=== PATIENT | male | born 1950 | race Caucasian/White ===

== ENCOUNTER → 2017-03-30 | Day surgery (SDC) | payer MEDICARE, BC ==
[~2017-03-30] VITALS: Ht 182.9 cm; Wt 73.1 kg
[~2017-03-30] MED LIST: ACETAMINOPHEN 1000 MG/100 ML VIAL IV ONE; ACETAMINOPHEN 500 MG CPLT PO PRN; ALEV220T14 PO; ATROPINE SULFATE 1% OPHT SOLN 2 ML BTL ONE; BALANCED SALT SOLN OPHT IRRIG 15 ML BTL LEFT EYE ONE; CHLORHEXIDINE GLUCONATE 2 % 1 PACK (2 CLOTHS) TOPICAL PRN; CYCLOPENTOLATE HCL 1% OPHT SOLN 2 ML BTL ONE; DEXAMETHASONE SOD PHOS 4 MG/ML VIAL ONE; DO NOT ADM ANY ANTICOAGULANT DRUGS PRN; FAMOTIDINE 20 MG/2 ML VIAL ONE; INSULIN HUMAN REGULAR 1,000 UNITS/10 ML VIAL SQ PRN; LACTATED RINGER'S 1000 ML IV PRN; METOPROLOL TARTRATE 25 MG TAB PO PRN; MIDAZOLAM HCL 2 MG/2 ML VIAL ONE; ONDANSETRON HCL 4 MG/2 ML VIAL IM PRN; ONDANSETRON HCL 4 MG/2 ML VIAL IV PUSH ONE; ONDANSETRON HCL 4 MG/2 ML VIAL IV PUSH PRN; ONETAB9 PO; PHENYLEPHRINE HCL 2.5% OPTH SOLN 2 ML BTL ONE; POVIDONE IODINE 5% (ANTISEPSIS KIT) 4 APPLICATIONS EACH NARE PRN; PROPOFOL 200 MG/20 ML AMP IV ONE; SODIUM CHLORID 0.9% 500 ML IV PRN; STERILE WATER FOR INJ 20 ML VIAL ONE; TOBRAMYCIN/DEXAMETHASONE OPTH OINT 3.5 GM TUBE ONE; TRIAMCINOLONE ACETONIDE 40 MG/ML VIAL ONE; TROPICAMIDE 1% OPHT SOLN 15 ML BTL ONE; ceFAZolin INJ 1,000 MG VIAL ONE; fentaNYL CITRATE 250 MCG/5 ML AMP ONE; oxyCODONE/ACETAMINOPHEN 5 MG/325 MG TAB PO PRN
[2017-03-30 07:22] VITALS: BP 154/81; PULSE 86; RESP 18; TEMP 98.4; O2SAT 98
[2017-03-30 07:43] LABS: AUTOMATED NEUTROPHIL # 3.5 TH/MM3 (1.8-7.7); BASOPHIL # 0.1 TH/MM3 (0-0.2); BASOPHIL % 1.3 % (0.0-2.0); EOSINOPHIL # 0.3 TH/MM3 (0-0.4); HEMATOCRIT 41.7 % (39.0-51.0); HEMO FLAGS DIFF FINAL; LYMPH % 26.2 % (9.0-44.0); LYMPHOCYTE # 1.7 TH/MM3 (1.0-4.8); MEAN CELL VOLUME 99.7 FL (80.0-100.0); MEAN CORPUSCULAR HEMOGLOBIN 35.5 PG (27.0-34.0); MEAN CORPUSCULAR HGB CONC 35.6 % (32.0-36.0); MONO % 13.2 % (0.0-8.0); NEUT % 55.3 % (16.0-70.0); PLATELET COUNT 200 TH/MM3 (150-450); RED BLOOD COUNT 4.18 MIL/MM3 (4.50-5.90); RED CELL DISTRIBUTION WIDTH 13.1 % (11.6-17.2); WHITE BLOOD COUNT 6.4 TH/MM3 (4.0-11.0)
--- NOTE | 2017-03-30 07:47 | EKG ---
Date Performed: 03/30/2017 Time Performed: 07:04:42 PTAGE: 66 years EKG: Sinus rhythm INCOMPLETE RIGHT BUNDLE BRANCH BLOCK BORDERLINE ECG NO PREVIOUS TRACING DOCTOR: Kristopher Flores Interpretating Date/Time 03/30/2017 07:45:49
[2017-03-30] MEDS: ATROPINE SULFATE 1% OPHT SOLN 5 ML BTL LEFT EYE SCH ×4 (08:03→09:00)
[2017-03-30] MEDS: PHENYLEPHRINE HCL 2.5% OPTH SOLN 2 ML BTL LEFT EYE SCH ×4 (08:03→09:00)
[2017-03-30] MEDS: TROPICAMIDE 1% OPHT SOLN 15 ML BTL LEFT EYE SCH ×4 (08:03→09:00)
[2017-03-30] MEDS: CYCLOPENTOLATE HCL 1% OPHT SOLN 2 ML BTL LEFT EYE SCH ×4 (08:03→09:00)
[2017-03-30 12:44] VITALS: BP 120/70; PULSE 76; RESP 20; TEMP 97.6; O2SAT 97
--- NOTE | 2017-04-01 12:26 | MP ---
cc: BENITO FONTANA M.D. DATE OF SURGERY: 03/30/2017 PREOPERATIVE DIAGNOSIS: Rhegmatogenous retinal detachment left eye. POSTOPERATIVE DIAGNOSIS: Rhegmatogenous retinal detachment left eye. PROCEDURE: Trans pars plana vitrectomy with internal drainage of subretinal fluid using Perfluoron liquid, endolaser photocoagulation and gas fluid exchange, left eye. SURGEON: Dr. Benito Fontana ANESTHESIA: General laryngeal mask anesthesia. INDICATIONS FOR PROCEDURE: Mr. Marvin is a 66 year-old gentleman who presented yesterday with loss of inferior visual field. This began by floaters he experienced a few weeks ago and then two or three days ago he noticed that the vision in the bottom of his visual field was blurry. He was found to have a rhegmatogenous retinal detachment with minimal involvement of the macula and vision of 20/200. The detachment went from approximately 10 o'clock to 3 o'clock and the fovea was shallowly on OCT scanning. Dr. Carias saw him initially and discussed the risks and benefits of surgery and recommended vitrectomy, gas tamponade. The patient wished to proceed and informed consent was obtained. DESCRIPTION OF PROCEDURE: He was brought to [facility] operating room #1 and placed on the operating room table. Appropriate anesthesia monitoring devices were applied and he was placed under general anesthesia using the laryngeal mask. The left eye was identified as the operative site and then prepped and draped in the usual sterile fashion. A lid speculum was placed. At this point an appropriate time-out was called with the surgical team agreeing to the surgical site and planned procedure. The microscope was brought around and adjusted. Using the Davon 22-gauge vitrectomy system the trocar cannulas were placed 3-1/2 mm posterior to the limbus after first displacing the conjunctiva and with a beveled entrance to the sclera. The first one was placed at approximately 3 o'clock and verified to be in the posterior chamber. An infusion cannula was affixed to it and turned on. Two additional trocar cannulas were placed in similar fashion at 10 and 2 o'clock. Using the flat contact lens a core vitrectomy was carried out with the Endo gas stove servicer helper light pipe and vitrectomy cutter. A posterior vitreous separation was noted. The flat lens was then exchanged out over the biome wide angle viewing system and a peripheral vitrectomy was performed. The retinal break was at 12 o'clock and the flap of the break was amputated as the peripheral vitreous was removed. Next Perfluoron liquid was used to flatten the retina after which endolaser photocoagulation was performed in the periphery nearly 360 degrees. A total of 1551 endo and DUKE spots were placed with a power that varied between 250 and 400 milliwatts and 0.1 to 0.15 second exposure. The Perfluoron was removed and replaced with sterile air and then the air was replaced with a 15% mixture of C3F8 gas which was slowly insufflated through the eye. The trocar cannulas were removed one by one with tamponade of the site with a cotton swab leaving the eye and diathermy of the overlying conjunctival wounds. This left the eye with good pressure and no visible air leak. Atropine drops were placed on the cornea followed by subconj injections of Ancef 125 mg in half cc and Decadron 2 mg in half cc. The lid speculum was removed and the patient was undraped. TobraDex ointment was placed on the cornea and then the left eye was patched and shielded. The patient had the laryngeal mask removed in the room and was returned to recovery in good condition laying on his right side. When he is awake and alert he will be asked to assume face down positioning. MD TK Espinoza/LORENZO /1:40 PM /12:11 PM
== END | disposition home or self-care (01) ==
LOC: HSDC 06:30
PROVIDERS: ATTEND Ophthalmology
DX: H33.012 Retinal detachment with single break, left eye (principal); H40.9 Unspecified glaucoma; R94.31 Abnormal electrocardiogram [ECG] [EKG]; F17.210 Nicotine dependence, cigarettes, uncomplicated; Z01.810 Encounter for preprocedural cardiovascular examination; Z01.818 Encounter for other preprocedural examination
CPT/HCPCS: 00145; 67108; 85025; 93005; J0131; J0690; J1100; J2250; J2405; J3010; J3301; J7120

== ENCOUNTER → 2017-04-19 | Day surgery (SDC) | payer MEDICARE, BC ==
[~2017-04-19] VITALS: Ht 182.9 cm; Wt 72.5 kg
[~2017-04-19] MED LIST changes: -ACETAMINOPHEN 1000 MG/100 ML VIAL IV ONE; -ACETAMINOPHEN 500 MG CPLT PO PRN; +BACIOIN25 LEFT EYE; -BALANCED SALT SOLN OPHT IRRIG 15 ML BTL LEFT EYE ONE; +BALANCED SALT SOLN OPHT IRRIG 15 ML BTL ONE; +BRIM0.2S4 LEFT EYE; +BUPIVACAINE HCL PF 0.75% 10 ML VIAL LEFT EYE ONE; +CYCL1SOL LEFT EYE; -CYCLOPENTOLATE HCL 1% OPHT SOLN 2 ML BTL ONE; +DORZ2SOL15 LEFT EYE; +EPINEPHrine HCL (1:1000) 1 MG/ML VIAL ONE; -FAMOTIDINE 20 MG/2 ML VIAL ONE; +GENTAMICIN SULFATE 80 MG/2 ML VIAL ONE; +LORazepam 2 MG/ML VIAL IV ONE; +LORazepam 2 MG/ML VIAL ONE; -ONDANSETRON HCL 4 MG/2 ML VIAL IM PRN; -ONDANSETRON HCL 4 MG/2 ML VIAL IV PUSH PRN; -PHENYLEPHRINE HCL 2.5% OPTH SOLN 2 ML BTL ONE; -STERILE WATER FOR INJ 20 ML VIAL ONE; +TOBRAMYCIN 0.3%/DEXAMETHASONE 0.1% OPHT SUSP 5 ML BTL ONE; +TOBRAMYCIN SULF 0.3% OPHT SOLN 5 ML BTL ONE; -TROPICAMIDE 1% OPHT SOLN 15 ML BTL ONE; +ePHEDrine/NS 25 MG/5 ML SYR IV ONE; -oxyCODONE/ACETAMINOPHEN 5 MG/325 MG TAB PO PRN
[2017-04-19 07:52] VITALS: BP 134/82; PULSE 76; RESP 20; TEMP 98.6; O2SAT 99
[2017-04-19] MEDS: PHENYLEPHRINE HCL 2.5% OPTH SOLN 2 ML BTL LEFT EYE SCH ×4 (09:50→10:35)
[2017-04-19] MEDS: TROPICAMIDE 1% OPHT SOLN 15 ML BTL LEFT EYE SCH ×4 (09:50→10:35)
[2017-04-19] MEDS: CYCLOPENTOLATE HCL 1% OPHT SOLN 2 ML BTL LEFT EYE SCH ×4 (09:50→10:35)
[2017-04-19] MEDS: ATROPINE SULFATE 1% OPHT SOLN 5 ML BTL LEFT EYE SCH ×4 (09:50→10:35)
[2017-04-19 17:55] VITALS: BP 153/82; PULSE 80; RESP 18; TEMP 99.2; O2SAT 97
--- NOTE | 2017-05-01 22:10 | MP ---
cc: BENITO MORALES M.D. DATE OF : 46 DATE OF SURGERY: 04/19/2017 PREOPERATIVE DIAGNOSIS: Recurrent rhegmatogenous retinal detachment, left eye. POSTOPERATIVE DIAGNOSIS: Recurrent rhegmatogenous retinal detachment, left eye. OPERATION: Scleral buckle procedure with trans pars plana vitrectomy, internal drainage of subretinal fluid, laser endophotocoagulation, gas-fluid exchange, left eye. SURGEON Dr. Benito Morales ANESTHESIA General laryngeal mask anesthesia. INDICATIONS FOR PROCEDURE: Mr. Marvin is a 66-year-old gentleman who underwent a vitrectomy for a primary rhegmatogenous retinal detachment on 03/30/2017. He was doing well until approximately 04/13/2017 when he was seen for postop and had developed a new retinal break in an area away from the original detachment inferiorly from about 5:30 to 8 o'clock. The retinal break was coalescing from several small breaks into a larger break and the inferior fluid was problematic. It was recommended that he undergo repeat procedure, this time with a scleral buckle to support the inferior peripheral retina. He wished to proceed. Informed consent was obtained. No guarantee was made as to visual outcome. DESCRIPTION OF PROCEDURE: He is brought to [facility] operating room #1 and placed on the operating room table. Appropriate anesthesia monitoring devices were applied and he was placed under general anesthesia using a laryngeal mask. The left eye was identified as the operative site and then prepped and draped in the usual sterile fashion. A lid speculum was placed. The conjunctiva was opened 360 degrees at the limbus using conjunctival forceps and Rossi scissors. Relaxing incisions were made nasally and temporally, all four quadrants were opened with blunt dissection using the blunt Rossi scissors. The four recti muscles were then hooked on muscle hooks and isolated on 4-0 black silk ties. The quadrants were inspected and had good scleral thickness. 5-0 polyester mattress sutures were placed 11 mm posterior to the limbus after the break was first marked at about 7 o'clock. This was in preparation of holding the buckle. The buckle was then threaded through the mattress sutures in each quadrant underneath the recti muscles and secured in the temporal quadrant above the lateral rectus muscle. Next the eye was entered with the Davon 23-gauge vitrectomy system, and residual peripheral vitreous was removed. The attachment to the retinal break at 7 was tediously dissected so there was no traction left there. The retina was flattened under Perfluoron. The Perfluoron allowed laser photocoagulation to the inferior retina on the posterior buckle with a total of 692 laser spots being placed with a power of 250 milliwatts and 0.1 second exposure. The buckle was then snugged down and secured and trimmed. The Perfluoron was exchanged out for air which was exchanged out for 15% mixture of C3F8 gas. The sclerostomies were sutured with interrupted 7-0 Vicryl. The conjunctiva was brought back up into place. The orbit was irrigated with a mixture of 0.75% Marcaine without epinephrine and tobramycin. The conj was brought back up into place and then closed along the radial relaxing incisions with 7-0 chromic. The recti muscle ties were removed. Atropine drops were placed on the cornea. The retina was attached under gas. Subconj injections of Ancef 125 mg in 0.5 cc and Decadron 2 mg in 0.5 cc were given at separate sites. The lid speculum was removed and the patient was undraped. TobraDex ointment was placed on the cornea and then the left eye was patched and shielded. The patient had the laryngeal mask removed in the room and was returned to recovery in good condition laying on his right side. When awake and alert, he will be asked to begin face down positioning. MD TK Espinoza/LORENZO /9:40 AM /9:56 PM
== END | disposition home or self-care (01) ==
LOC: HSDC 07:10
PROVIDERS: ATTEND Ophthalmology
DX: H33.012 Retinal detachment with single break, left eye (principal)
CPT/HCPCS: 00145; 67108; J0171; J0690; J1100; J2060; J2250; J2405; J3010; J3301; J7120; J1580

== ENCOUNTER 2018-06-06 05:36 | Inpatient (IN) ==
[2018-06-06] MEDS ORDERED: Metoprolol Tartrate 25 MG Tablet PO ONE (06:30)
[2018-06-06] MEDS ORDERED: Sodium Chlor 0.9% Inj 500 ML IV.CONT ONE (06:30)
[2018-06-06] MEDS ORDERED: Chlorhexidine Gluconate 2% 1 Pack (2 Cloths) TOPICAL ONE (06:30)
[2018-06-06] MEDS ORDERED: Bupivacaine 0.5% Inj 50 ML MDV Vial ONE (06:33)
[2018-06-06] MEDS ORDERED: ceFAZolin 2 GM Premix Inj 0 GM/0 ML PIGGYBACK IV.SIG ONE (06:33)
[2018-06-06 06:45] VITALS: BP 114/68; PULSE 84; RESP 20; TEMP 99.1; O2SAT 97
== END 2018-06-06 07:39 | disposition home or self-care (01) ==
LOC: HSDI 05:36
PROVIDERS: ADMIT Thoracic Surgery (Cardiothoracic Vascular Surgery); ATTEND Thoracic Surgery (Cardiothoracic Vascular Surgery)

== ENCOUNTER 2018-08-15 05:37 | Inpatient (IN) ==
[2018-08-15] MEDS ORDERED: Chlorhexidine Gluconate 2% 1 Pack (2 Cloths) TOPICAL ONE (06:00)
[2018-08-15] MEDS ORDERED: Metoprolol Tartrate 25 MG Tablet PO ONE (06:00)
[2018-08-15] MEDS ORDERED: Sodium Chlor 0.9% Inj 500 ML IV.CONT ONE (06:00)
[2018-08-15 07:04] LABS: Hematocrit 29.9 % (39.0-51.0); Mean Corpuscular HGB Conc 33.5 % (32.0-36.0); Mean Corpuscular Hemoglobin 31.8 pg (27.0-34.0); Mean Corpuscular Volume 94.8 fL (80.0-100.0); Red Blood Count 3.15 mil/mm3 (4.50-5.90); Red Cell Distribution Width 13.9 % (11.6-17.2)
[2018-08-15 07:05] LABS: Baso # (Auto) 0.1 th/mm3 (0.0-0.2); Eos # (Auto) 0.1 th/mm3 (0.0-0.4); Eos % (Auto) 1.3 % (0.0-4.0); Lymph # (Auto) 1.2 th/mm3 (1.0-4.8); Mean Platelet Volume 7.7 fL (7.0-11.0); Mono # (Auto) 1.3 th/mm3 (0.0-0.9); Mono % (Auto) 13.5 % (0.0-8.0); Neut # (Auto) 7.2 th/mm3 (1.8-7.7); Neut % (Auto) 72.2 % (16.0-70.0); Platelet Count 351 th/mm3 (150-450)
[2018-08-15] MEDS ORDERED: Bupivacaine 0.5% Inj 50 ML MDV Vial ONE (07:26)
[2018-08-15] MEDS ORDERED: ceFAZolin 1 GM Premix Inj 2 GM/100 ML PIGGYBACK IV.SIG ONE (07:26)
[2018-08-15] MEDS ORDERED: Sodium Chlor 0.9% Inj 20 ML, Bupivacaine Liposo PF 1.3% Inj 20 ML, Dexamethasone PF Inj... IRRIGATION ONE ×4 (08:30)
[2018-08-15] MEDS ORDERED: HYDROmorphone PF Inj 1 MG/ML Ampul ONE (11:48)
[2018-08-15] MEDS ORDERED: Bisacodyl 10 MG Supp RECTAL PRN (12:19)
[2018-08-15] MEDS ORDERED: Post-op Orders (for Pharmacy) OTHER STA (12:19)
[2018-08-15] MEDS ORDERED: Potassium Chlor 20 mEq Premix 20 MEQ/100 ML PIGGYBACK IV.SIG PRN (12:19)
--- NOTE | 2018-08-15 12:34 | P.OP ---
- Preoperative Diagnosis (1) Lung cancer Postoperative Diagnosis: same Date of procedure: 08/15/18 Procedure: VATS right lower lobectomy Internal rigid fixation of the 7th rib with a plate Anesthesia: JM Surgeon: Zaida Amaya MD Corrugator Operator Helper: Kimberly Lewis Estimated blood loss (mL): 100 Pathology: other (right lower lobe, paraesophageal lymph node) Operation and Findings: After adequate general anesthesia the patient was placed in the left lateral decubitus position and the right chest was prepped and draped in usual manner. A small anterior port incision was performed in the 7th intercostal space and electrocautery was used to obtain hemostasis. A 10mm port was inserted into the pleural space with single lung ventilation. A 6cm utility incision was placed at the 6th intercostal space at the posterior axillary line. Exploration of the right hemithorax was significant for a *tumor in the right lower lobe consistent with the patient's imaging studies and biopsy site. The inferior pulmonary ligament was divided and the inferior pulmonary vein isolated. The fissure was developed using an endo KEN stapler and blunt dissection. The pulmonary artery segmental arterial branches were ligated and divided using an endo KEN stapler. The right lower lobe bronchus was isolated and divided using an endo KEN stapler. The specimen was placed n a laparoscopic bag and delivered through the utility port. The specimen was submitted to pathology for permanent section. Additionally, a level 8 lymph nodes were resected and submitted for permanent section. A 32 Occitan chest tube was placed through the anterior port incision and secured with 0 silk suture. Esparel intercostal blocks were infused for postoperative analgesia. The lung was ventilated and no significant air leaks were found. A single small plate was used to reduce and fix a fractured rib. The utility port was closed in layers approximately each layer with a running 2-0 vicryl suture. The subcutaneous tissues approximated running 2-0 Vicryl suture and the skin was approximated using running 4-0 Monocryl subcuticular stitch. All sponges history counts were correct at the close the procedure and the patient was transferred to the PACU for recovery purposes.
[2018-08-15] MEDS ORDERED: fentaNYL Citrate Inj 100 MCG/2 ML Ampul ONE ×2 (12:57)
--- NOTE | 2018-08-15 13:45 | XR ---
EXAM DATE: 08/15/2018 1:32 PM EST AGE/SEX: 67 years / Male INDICATIONS: Post op thoracotomy. CLINICAL DATA: This is the patient's initial encounter. Patient reports that signs and symptoms have been present for 1 day and indicates a pain score of Nonresponsive. MEDICAL/SURGICAL HISTORY: . Carcinoma, lung. . Thoracotomy. [place] [facility] [facility] [place]. . FINDINGS: Right-sided postthoracotomy changes are noted. Loss of volume in the right lung base is characteristi c of lobectomy. The large masslike density in the right lower lobe has been removed. Right-sided ches t tube is in place. Residual right lung is well expanded without pneumothorax. Left lung remains clear. Heart and mediastinal structures remain within normal limits. CONCLUSION: Status post right thoracotomy with volume loss characteristic of lobectomy. Right-sided chest tube without evidence of pneumothorax. Otherwise stable chest Electronically signed by: Jered Martinez MD Board Certified Radiologist 08/15/2018 1:43 PM EST
[2018-08-15] MEDS ORDERED: Ketorolac Inj 30 MG/ML (IVP) Vial ONE (13:48)
[2018-08-15] MEDS: Ketorolac Inj 30 MG/ML (IVP) Vial IV.PUSH SCH ×2 (13:48→22:29)
[2018-08-15] MEDS ORDERED: ceFAZolin 1 GM Premix Inj 1 GM/50 ML PIGGYBACK IV.SIG ONE (15:06)
[2018-08-15] MEDS: Senna/Docusate Sodium 8.6/50 MG Tablet PO SCH (22:24)
[2018-08-16] MEDS: ceFAZolin 1 GM Premix Inj 1 GM/50 ML PIGGYBACK IV.SIG SCH ×2 (00:55→08:47)
[2018-08-16] MEDS: Ketorolac Inj 30 MG/ML (IVP) Vial IV.PUSH SCH ×2 (02:50→08:47)
--- NOTE | 2018-08-16 03:55 | XR ---
EXAM DATE: 08/16/2018 3:35 AM EST AGE/SEX: 67 years / Male INDICATIONS: COPD. Post Thoracotomy. CLINICAL DATA: This is the patient's subsequent encounter. Patient reports that signs and symptoms h ave been present for 2 days and indicates a pain score of 0/10. MEDICAL/SURGICAL HISTORY: . Carcinoma, lung. . Carcinoma, lung. COMPARISON: [facility] – [place], CHEST 1V SINGLE AP, 08/15/2018. . FINDINGS: There is a right-sided chest tube in place. A pneumothorax is not seen. The heart size is normal. The re is increased density at the right base. There is silhouetting the right hemidiaphragm. There some minimal increased density at the left base. There appears to be a surgical plate at the 8th right rib . There is minimal subcutaneous emphysema seen at the right upper lateral chest and neck region. CONCLUSION: Right chest tube without evidence for pneumothorax. Increased density at the medial right base with silhouetting the right hemidiaphragm. Minimal increased density at the left base. Electronically signed by: Marcelo Jacobson MD Board Certified Radiologist 08/16/2018 3:54 AM EST
[2018-08-16 05:00] LABS: Baso % (Auto) 0.4 % (0.0-2.0); Hematocrit 30.2 % (39.0-51.0); Hemoglobin 10.3 gm/dL (13.0-17.0); Lymph # (Auto) 0.9 th/mm3 (1.0-4.8); Lymph % (Auto) 8.4 % (9.0-44.0); Mean Corpuscular HGB Conc 33.9 % (32.0-36.0); Mean Corpuscular Volume 94.3 fL (80.0-100.0); Mean Platelet Volume 7.9 fL (7.0-11.0); Mono # (Auto) 0.7 th/mm3 (0.0-0.9); Mono % (Auto) 7.1 % (0.0-8.0); Neut # (Auto) 8.8 th/mm3 (1.8-7.7); Neut % (Auto) 84.1 % (16.0-70.0); Platelet Count 322 th/mm3 (150-450); Red Blood Count 3.21 mil/mm3 (4.50-5.90); Red Cell Distribution Width 13.6 % (11.6-17.2); White Blood Count 10.5 th/mm3 (4.0-11.0)
[2018-08-16 05:20] LABS: Anion Gap 6 meq/L (5-15); Blood Urea Nitrogen 16 mg/dL (7-18); Calcium 7.6 mg/dL (8.5-10.1); Chloride 102 meq/L (98-107); Glomerular Filtration Rate Greater Than 89 mL/min (>89); Glucose,Random 137 mg/dL (74-106); Potassium 4.1 meq/L (3.5-5.1); Sodium 135 meq/L (136-145)
[2018-08-16] MEDS: Ascorbic Acid 500 MG Tablet PO SCH (08:48)
[2018-08-16] MEDS: Senna/Docusate Sodium 8.6/50 MG Tablet PO SCH ×2 (08:48→20:22)
[2018-08-16] MEDS: Enoxaparin Inj 40 MG/0.4 ML Syringe SQ SCH (12:47)
--- NOTE | 2018-08-16 12:54 | P.PNCV ---
- Note CVT: Post Op Day #: 1 Subjective/Hospital Course: Doing well, no complaints Objective: Vital Signs - 24 hr 08/15/18 13:00 08/15/18 13:15 08/15/18 13:30 Temperature Pulse Rate 82 82 76 Respiratory Rate 16 16 16 Blood Pressure 100/58 L 97/54 L 93/51 L Pulse Oximetry 95 95 98 08/15/18 13:45 08/15/18 14:00 08/15/18 14:15 Temperature Pulse Rate 76 74 82 Respiratory Rate 16 16 16 Blood Pressure 95/52 L 96/55 L 112/57 L Pulse Oximetry 98 97 100 08/15/18 14:30 08/15/18 15:00 08/15/18 16:00 Temperature Pulse Rate 84 88 80 Respiratory Rate 16 16 16 Blood Pressure 104/59 L 109/56 L 111/65 Pulse Oximetry 98 99 100 08/15/18 17:00 08/15/18 18:00 08/15/18 19:00 Temperature Pulse Rate 76 87 77 Respiratory Rate 16 14 19 Blood Pressure 109/59 L 105/56 L 103/57 L Pulse Oximetry 97 95 97 08/15/18 20:00 08/15/18 21:00 08/15/18 22:00 Temperature 98.7 F Pulse Rate 80 86 72 Respiratory Rate 18 Blood Pressure 101/57 L Pulse Oximetry 97 08/15/18 23:00 08/16/18 00:00 08/16/18 01:00 Temperature 98.1 F Pulse Rate 70 60 60 Respiratory Rate 18 18 Blood Pressure 106/57 L Pulse Oximetry 98 08/16/18 02:00 08/16/18 03:00 08/16/18 03:49 Temperature Pulse Rate 60 70 Respiratory Rate 18 Blood Pressure Pulse Oximetry 08/16/18 04:00 08/16/18 05:00 08/16/18 06:00 Temperature 98.8 F Pulse Rate 92 H 102 H 72 Respiratory Rate 18 Blood Pressure 111/56 L Pulse Oximetry 97 08/16/18 07:00 08/16/18 07:56 08/16/18 07:57 Temperature 98.4 F Pulse Rate 72 71 84 Respiratory Rate Blood Pressure 111/62 Pulse Oximetry 97 08/16/18 08:59 08/16/18 09:00 08/16/18 10:00 Temperature Pulse Rate 78 69 67 Respiratory Rate 18 Blood Pressure Pulse Oximetry 08/16/18 10:18 08/16/18 10:46 08/16/18 11:20 Temperature 98.5 F Pulse Rate 69 71 73 Respiratory Rate 16 Blood Pressure 116/57 L Pulse Oximetry 95 Labs: Laboratory Results - last 12 hr 08/16/18 08/16/18 04:24 04:24 WBC 10.5 RBC 3.21 L Hgb 10.3 L Hct 30.2 L MCV 94.3 MCH 32.0 MCHC 33.9 RDW 13.6 Plt Count 322 MPV 7.9 Neut % (Auto) 84.1 H Lymph % (Auto) 8.4 L Bosque % (Auto) 7.1 Eos % (Auto) 0.0 Baso % (Auto) 0.4 Neut # (Auto) 8.8 H Lymph # (Auto) 0.9 L Bosque # (Auto) 0.7 Eos # (Auto) 0.0 Baso # (Auto) 0.0 WBC Differential . Differential Comment Auto diff final Sodium 135 L Potassium 4.1 Chloride 102 Carbon Dioxide 27.0 Anion Gap 6 BUN 16 Creatinine 0.58 L Estimated GFR Greater than 89 Random Glucose 137 H Calcium 7.6 L Result Diagrams: 08/16/18 04:24 08/16/18 04:24 Imaging: Chest X-Ray 08/16/18 12:19 CONCLUSION: Right chest tube without evidence for pneumothorax. Increased density at the medial right base with silhouetting the right hemidiaphragm. Minimal increased density at the left base. Cardiovascular: RRR Telemetry: NSR Pulmonary: CTA GI/: NABS Incision: dry and intact CT: 60ml, no air leak doing well s/p VATS RLL resection Path pending Chest tube to water seal CXR in AM
[2018-08-16] MEDS: oxyCODONE/Acetaminophen 10/325 Tablet PO PRN (20:20)
[2018-08-17] MEDS: oxyCODONE/Acetaminophen 10/325 Tablet PO PRN ×5 (03:08→22:25)
--- NOTE | 2018-08-17 04:15 | XR ---
EXAM DATE: 08/17/2018 3:48 AM EST AGE/SEX: 67 years / Male INDICATIONS: Shortness of breath, possible pneumothorax. CLINICAL DATA: This is the patient's subsequent encounter. Patient reports that signs and symptoms h ave been present for 3 days and indicates a pain score of 4/10. MEDICAL/SURGICAL HISTORY: Carcinoma, lung. . Thoracotomy. [place] [facility] [place]. . FINDINGS: There is a right-sided chest tube in place. A pneumothorax is not seen. There is a surgical fasteners are seen at the right eighth rib. There is increased density at the medial right base. Some hazy den sity at the right base. The left lung is clear. CONCLUSION: Right chest tube without evidence for pneumothorax. There may be some effusion given the haziness at the right base. Right base atelectasis or consolidation. Electronically signed by: Marcelo aJcobson MD Board Certified Radiologist 08/17/2018 4:13 AM EST
--- NOTE | 2018-08-17 08:45 | P.PNCV ---
- Note Subjective/Hospital Course: Doing well, no complaints 08/17 Doing well Hemodynamic stable Chest tube with significant drainage We will reevaluate in the morning for removal Objective: Vital Signs - 24 hr 08/16/18 08:59 08/16/18 09:00 08/16/18 10:00 Temperature Pulse Rate 78 69 67 Respiratory Rate 18 Blood Pressure Pulse Oximetry 08/16/18 10:18 08/16/18 10:46 08/16/18 11:20 Temperature 98.5 F Pulse Rate 69 71 73 Respiratory Rate 16 Blood Pressure 116/57 L Pulse Oximetry 95 08/16/18 13:00 08/16/18 14:00 08/16/18 15:00 Temperature Pulse Rate 79 70 71 Respiratory Rate Blood Pressure Pulse Oximetry 08/16/18 16:00 08/16/18 16:56 08/16/18 18:00 Temperature Pulse Rate 73 78 79 Respiratory Rate 16 Blood Pressure 111/57 L Pulse Oximetry 94 L 08/16/18 19:00 08/16/18 19:52 08/16/18 20:00 Temperature 98.4 F Pulse Rate 82 80 82 Respiratory Rate 16 22 Blood Pressure 106/59 L Pulse Oximetry 93 L 08/16/18 21:00 08/16/18 22:00 08/16/18 23:00 Temperature Pulse Rate 70 71 71 Respiratory Rate Blood Pressure Pulse Oximetry 08/17/18 00:00 08/17/18 01:00 08/17/18 02:00 Temperature 98.7 F Pulse Rate 78 78 68 Respiratory Rate 18 Blood Pressure Pulse Oximetry 93 L 08/17/18 03:00 08/17/18 04:00 08/17/18 05:00 Temperature 98.2 F Pulse Rate 74 70 68 Respiratory Rate 22 Blood Pressure 116/62 Pulse Oximetry 08/17/18 06:00 08/17/18 07:00 Temperature Pulse Rate 76 71 Respiratory Rate 14 Blood Pressure Pulse Oximetry Result Diagrams: 08/16/18 04:24 08/16/18 04:24
[2018-08-17] MEDS: Ascorbic Acid 500 MG Tablet PO SCH (09:02)
[2018-08-17] MEDS: Senna/Docusate Sodium 8.6/50 MG Tablet PO SCH ×2 (09:02→20:02)
[2018-08-17] MEDS: Enoxaparin Inj 40 MG/0.4 ML Syringe SQ SCH (11:34)
[2018-08-18] MEDS: oxyCODONE/Acetaminophen 10/325 Tablet PO PRN ×3 (06:22→21:27)
[2018-08-18] MEDS: Senna/Docusate Sodium 8.6/50 MG Tablet PO SCH ×2 (08:36→21:24)
[2018-08-18] MEDS: Ascorbic Acid 500 MG Tablet PO SCH (08:36)
--- NOTE | 2018-08-18 09:20 | P.PNCV ---
- Note Subjective/Hospital Course: Doing well, no complaints 08/17 Doing well Hemodynamic stable Chest tube with significant drainage We will reevaluate in the morning for removal 08/18 Doing well On room air DC chest tube today Possible discharge in a.m. Objective: Vital Signs - 24 hr 08/17/18 10:00 08/17/18 11:00 08/17/18 11:46 Temperature 98.2 F Pulse Rate 74 71 84 Respiratory Rate 20 Blood Pressure 117/59 L Pulse Oximetry 95 08/17/18 12:00 08/17/18 13:00 08/17/18 14:00 Temperature Pulse Rate 77 75 73 Respiratory Rate Blood Pressure Pulse Oximetry 08/17/18 15:00 08/17/18 16:00 08/17/18 17:00 Temperature 98.1 F Pulse Rate 75 75 76 Respiratory Rate 20 Blood Pressure 135/61 Pulse Oximetry 95 08/17/18 18:00 08/17/18 19:00 08/17/18 19:33 Temperature Pulse Rate 67 78 84 Respiratory Rate 18 Blood Pressure Pulse Oximetry 08/17/18 20:00 08/17/18 21:00 08/17/18 22:00 Temperature 98.8 F Pulse Rate 78 78 90 Respiratory Rate 18 Blood Pressure 116/64 Pulse Oximetry 97 08/17/18 23:00 08/18/18 00:00 08/18/18 01:00 Temperature 97.8 F Pulse Rate 82 76 72 Respiratory Rate 18 Blood Pressure 119/64 Pulse Oximetry 94 L 08/18/18 04:00 08/18/18 07:00 08/18/18 07:22 Temperature 98.6 F Pulse Rate 80 73 72 Respiratory Rate 20 20 Blood Pressure 125/60 Pulse Oximetry 94 L 08/18/18 08:00 08/18/18 08:30 Temperature Pulse Rate 87 83 Respiratory Rate 18 Blood Pressure Pulse Oximetry Labs: Laboratory Results - last 12 hr 08/15/18 08:19 MTS Gel Crossmatch See Detail Result Diagrams: 08/16/18 04:24 08/16/18 04:24
[2018-08-18] MEDS: Enoxaparin Inj 40 MG/0.4 ML Syringe SQ SCH (11:15)
[2018-08-19] MEDS: oxyCODONE/Acetaminophen 10/325 Tablet PO PRN (04:19)
--- NOTE | 2018-08-19 06:12 | P.DS ---
Date of admission: 08/15/18 05:37 Primary care physician: Liz Jonas Attending physician on discharge: Zaida Amaya Anticipated date of discharge: 08/19/18 Brief History from admission: 67y/o male smoker presents with right lower lobe lung cancer. This appears to be an early-stage tumor and resection was recommended. DS: Diagnosis - Discharge Diagnosis (1) COPD (chronic obstructive pulmonary disease) Status: Acute Diagnosis: Secondary (2) Tobacco abuse Status: Acute Diagnosis: Secondary (3) ETOH abuse Status: Acute Diagnosis: Secondary (4) Lung cancer Status: Acute Diagnosis: Principal DS: Medications - Discharge Medications Prescriptions: oxycodone-acetaminophen 1 tab PO Q4H PRN #20 tab PRN Reason: Pain Scale 6 To 10 DS: Summary Hospital Course: Patient underwent right thoracoscopic lower lobectomy for mung cancer on . 08/16/18 Doing well, no complaints 08/17 Doing well Hemodynamic stable Chest tube with significant drainage We will reevaluate in the morning for removal 08/18 Doing well On room air DC chest tube today Possible discharge in a.m. - Time Spent with Patient Total time spent providing and/or coordinating discharge services: Greater than 30 minutes - Quality: VTE Deep Vein Thrombosis/Pulmonary Embolism Present on Admission: No Exam Vital signs: Vital Signs 08/18/18 07:00 08/18/18 07:22 08/18/18 08:00 Temperature 98.6 F Pulse Rate 73 72 87 Respiratory Rate 20 Blood Pressure 125/60 Pulse Oximetry 94 L 08/18/18 08:30 08/18/18 09:00 08/18/18 10:00 Temperature Pulse Rate 83 78 70 Respiratory Rate 18 Blood Pressure Pulse Oximetry 08/18/18 11:00 08/18/18 11:59 08/18/18 12:00 Temperature 99 F Pulse Rate 72 77 88 Respiratory Rate 20 Blood Pressure 126/58 L Pulse Oximetry 96 08/18/18 13:00 08/18/18 14:00 08/18/18 15:00 Temperature Pulse Rate 84 82 83 Respiratory Rate Blood Pressure Pulse Oximetry 08/18/18 15:23 08/18/18 16:00 08/18/18 17:00 Temperature 98.4 F Pulse Rate 80 80 76 Respiratory Rate 20 Blood Pressure 139/64 Pulse Oximetry 96 08/18/18 18:00 08/18/18 19:00 08/18/18 20:00 Temperature 98.1 F Pulse Rate 73 85 80 Respiratory Rate 16 Blood Pressure 136/72 Pulse Oximetry 97 08/18/18 20:49 08/18/18 21:00 08/18/18 22:00 Temperature Pulse Rate 80 78 76 Respiratory Rate 18 Blood Pressure Pulse Oximetry 08/18/18 23:00 08/19/18 00:00 08/19/18 01:00 Temperature 99.6 F Pulse Rate 75 76 74 Respiratory Rate 16 Blood Pressure 127/84 Pulse Oximetry 95 08/19/18 02:00 08/19/18 03:00 08/19/18 04:00 Temperature 99.4 F Pulse Rate 76 70 71 Respiratory Rate 16 Blood Pressure 119/68 Pulse Oximetry 94 L 08/19/18 05:00 Temperature Pulse Rate 76 Respiratory Rate Blood Pressure Pulse Oximetry Intake & Output 08/18/18 08/18/18 08/19/18 06:59 18:59 06:59 Intake Total 480 / 480 960 / 960 Output Total 620 / 620 1000 / 1000 Balance -140 / -140 -40 / -40 Weight 68.5 kg Intake: Oral 480 / 480 960 / 960 Output: Urine 500 / 500 1000 / 1000 Chest Tube Drainage 120 / 120 Right Pleural 120 / 120 Other: # Voids 2 Date of Last Bowel Movement 08/15/18 08/15/18 08/15/18 # Bowel Movements 0 0 - Constitutional no acute distress - Routine HEENT Exam Head: Present: normocephalic, atraumatic Eye: Present: EOMI, PERRL, normal accommodation - Routine Neck Exam Present: supple, full ROM - Routine Respiratory Exam Present: CTA bilaterally - Routine Cardiovascular Exam Present: RRR - Routine Abdominal Exam Present: soft, normoactive bowel sounds. Absent: tenderness - Routine Extremities Exam Present: pulses intact - Routine Skin Exam Present: intact - Routine Neurological Exam Present: alert, oriented X3, CN II-XII intact Results Procedures completed during hospitalization: Right VATS lower lobectomy Pending studies at discharge: Pending at discharge 08/15/18 14:30 Surgical [PTH] Routine Labs on day of discharge: Labs from last 24 hours 08/15/18 08:19 MTS Gel Crossmatch See Detail - Impressions ITS Impressions Chest X-Ray 08/17/18 06:00 CONCLUSION: Right chest tube without evidence for pneumothorax. There may be some effusion given the haziness at the right base. Right base atelectasis or consolidation. Discharge Plan - Discharge Disposition Patient Disposition: 01 Discharge Home - Discharge Condition Condition: Good - Discharge Order Discharge Orders: Discharge Order (Routine); Ordered 08/19/18 Ordered By: Zaida Amaya - Discharge Details Anticipated Discharge Date: 08/19/18 - Physicians Team Primary Care Provider: Liz Jonas Attending Provider: Zaida Amaya - Rxs /Orders / Referrals /Forms Prescriptions: New magnesium hydroxide [Milk of Magnesia] 400 mg/5 mL Suspension 30 ml PO Q12H PRN (Reason: Mild Constipation) RF: 0 oxycodone-acetaminophen 10-325 mg Tablet 1 tab PO Q4H PRN (Reason: Pain Scale 6 To 10) Qty: 20 RF: 0 Continue acetaminophen [Tylenol Extra Strength] 500 mg Tablet 1,000 mg PO Q6H PRN (Reason: Pain) ascorbic acid (vitamin C) [Vitamin C] 500 mg Tablet Extended Release 500 mg PO DAILY naproxen sodium [Aleve] 220 mg Tablet 440 mg PO BID PRN (Reason: Pain) vitamin E 200 unit Capsule 200 unit PO DAILY Referrals: Zaida Amaya MD [Physician] - See Instructions Dominique Rose [[facility] RN PRACTITIONER] - See Instructions ( Your appointment has been scheduled for [09/12/18] at [10:45 am] If you cannot make this appointment, please call the office to reschedule ) Liz Jonas M.D. [Primary Care Provider] - See Instructions ( Your appointment has been scheduled for [09/02/18] at [10:30 AM] If you cannot make this appointment, please call the office to reschedule ) - Discharge Instructions Patient Printed Instructions: Thoracoscopy (DC)
[2018-08-19] MEDS: Senna/Docusate Sodium 8.6/50 MG Tablet PO SCH (08:01)
[2018-08-19] MEDS: Ascorbic Acid 500 MG Tablet PO SCH (08:01)
== END 2018-08-19 12:07 | disposition home or self-care (01) ==
LOC: HSDI 05:37 → HCPC 20:23
PROVIDERS: ADMIT Thoracic Surgery (Cardiothoracic Vascular Surgery); ATTEND Thoracic Surgery (Cardiothoracic Vascular Surgery)